=== PATIENT | female | born 1970 | race Caucasian/White ===

== ENCOUNTER → 2020-08-25 07:50 | Outpatient (CLI) | payer OTHER, SELFPAY ==
--- NOTE | ~2020-08-25 | MR_ITS ---
EXAMINATION: MR shoulder RT wo con DATE: 08/25/2020 08:35 INDICATION: Right shoulder pain. TECHNIQUE: Magnetic resonance imaging (MRI) of the right shoulder was performed without intravenous c ontrast. Sequences included axial PD-weighted FS FSE, coronal oblique PD-weighted FS FSE and T2-weigh carlitos FS FSE, and sagittal oblique T2-weighted FS FSE and T1-weighted FSE. COMPARISON: Right shoulder MRI 11/11/2016 FINDINGS: Coracoacromial arch: The acromion undersurface is curved in morphology (type II). There is moderate acromioclavicular join t osteoarthritis including inferiorly directed osteophytes. There is mild subacromial/subdeltoid burs itis. Rotator cuff: There is mild supraspinatus and infraspinatus tendinopathy. Teres minor tendon is normal. Subscapular is tendon is normal. There is no asymmetric fatty atrophy of the rotator cuff muscle bellies. Biceps tendon and glenoid labrum: Biceps tendon is in bicipital groove. Intra-articular biceps tendon is normal. There is a tear of the glenoid labrum from 11:00 to 12:00 (SLAP tear). Fluid: There is no glenohumeral joint effusion. Bones/cartilage: The glenoid cartilage is normal. Humeral head cartilage is normal. IMPRESSION: 1. Mild rotator cuff tendinopathy. No tear. 2. SLAP tear. 3. Moderate acromioclavicular joint osteoarthritis. 4. Mild subacromial/subdeltoid bursitis. Reviewed, dictated and finalized at location B.
== END ==
PROVIDERS: Visit Provider Orthopaedic Surgery
DX: M19.011 Primary osteoarthritis, right shoulder (principal); S43.431A Superior glenoid labrum lesion of right shoulder, initial encounter; M75.51 Bursitis of right shoulder
CPT/HCPCS: 73221

== ENCOUNTER → 2020-09-23 11:23 | Outpatient (CLI) | payer OTHER, SELFPAY ==
--- NOTE | ~2020-09-23 | MM_ITS ---
EXAMINATION: MM screening quita BI w carleen HISTORY: Screening mammogram TECHNIQUE: Craniocaudal and mediolateral oblique 3-D tomosynthesis images were obtained and synthetic 2-D images were generated. CAD analysis was submitted and interpreted. COMPARISON: 07/20/2012, 03/02/2011 bilateral digital screening mammogram BREAST PARENCHYMAL COMPOSITION: There are scattered areas of fibroglandular density. FINDINGS: Bilateral mammographic asymmetries. Bilateral diagnostic mammography is recommended, with u ltrasound if required. IMPRESSION: 1. Bilateral mammographic asymmetries 2. Bilateral diagnostic mammography is recommended, with ultrasound if required BI-RADS Category 0: Incomplete: Needs additional imaging evaluation. Reviewed, dictated and finalized at location A.
== END ==
PROVIDERS: Visit Provider Nurse Practitioner Obstetrics & Gynecology
DX: Z12.31 Encounter for screening mammogram for malignant neoplasm of breast (principal); R92.8 Other abnormal and inconclusive findings on diagnostic imaging of breast
CPT/HCPCS: 77063; 77067

== ENCOUNTER → 2020-10-02 07:56 | Outpatient (CLI) | payer OTHER, SELFPAY ==
--- NOTE | ~2020-10-02 | MMUS_ITS ---
EXAMINATION: MM diagnostic mammo BI, US breast BI complete HISTORY: Follow-up breast asymmetries TECHNIQUE: Additional 3-D tomosynthesis images of the breasts were performed and synthetic 2-D images were generated. CAD analysis was submitted and interpreted. High resolution complete bilateral breas t ultrasound was performed. COMPARISON: Comparison to multiple prior studies sequentially, with oldest reviewed study dated 02/03. BREAST PARENCHYMAL COMPOSITION: Breast composed of scattered areas of fibroglandular density. FINDINGS: MAMMOGRAPHIC FINDINGS: There are no suspicious masses, calcifications or architectural distortion in either breast to sugges t malignancy. ULTRASOUND: Bilateral complete breast ultrasound: In the right breast at 8:00, 5 cm from the nipple, there is a 5 mm cyst. Otherwise, no discrete masses are identified. No sonographic evidence for malignancy in eit her breast. IMPRESSION: 1. No evidence for malignancy in either breast. 2. Routine yearly screening mammogram and regular clinical breast examination are recommended. BI-RADS Category 2: Benign finding(s). Reviewed, dictated and finalized at location A. IMPRESSION: 1. No evidence for malignancy in either breast. 2. Routine yearly screening mammogram and regular clinical breast examination a re recommended. BI-RADS Category 2: Benign finding(s).
== END ==
PROVIDERS: Visit Provider Nurse Practitioner Obstetrics & Gynecology
DX: R92.8 Other abnormal and inconclusive findings on diagnostic imaging of breast (principal)
CPT/HCPCS: 76641; 77066

== ENCOUNTER → 2021-04-03 01:06 | Outpatient (CLI) | payer OTHER, SELFPAY ==
[2021-04-04 16:52] LABS: SARS-CoV-2 RNA PCR Negative
== END ==
PROVIDERS: PCP Family Medicine; Visit Provider Internal Medicine Gastroenterology
DX: Z01.812 Encounter for preprocedural laboratory examination (principal); Z20.822 Contact with and (suspected) exposure to COVID-19
CPT/HCPCS: C9803; U0003; U0005

== ENCOUNTER 2021-04-07 01:52 | Day surgery (SDC) | payer OTHER, SELFPAY ==
[2021-04-01 11:27] VITALS: BMI 26.2
[2021-04-07 07:43] VITALS: BP 146/93; PULSE 80; RESP 18; TEMP 36.8; O2SAT 98
[2021-04-07] MEDS: LACTATED RINGERS 1,000 ML 150 ML IV CONT (07:52)
--- NOTE | 2021-04-07 08:35 | P.PNAN_ITS ---
Anes - Initial Pre Proc Eval Procedure: Operation Date: 04/07/21 09:00 Proposed Procedures p Screening Colonoscopy - Kennedy Paul MD Date/Time: 04/07/21 08:35 Surgeon: Kennedy Paul MD Pre Op Diagnosis: neoplasm screening Patient Data Age: 50 Gender: F Height: 1.64 m Weight: 74.2 kg Last Vital Signs Temp 98.2 F 04/07/21 07:43 Pulse 80 04/07/21 07:43 Resp 18 04/07/21 07:43 BP 146/93 H 04/07/21 07:43 Pulse Ox 98 04/07/21 07:43 Allergies Allergy/AdvReac Type Severity Reaction Status Date / Time No Known Allergies Allergy Verified 04/07/21 07:42 Home Medications Medication Instructions Recorded Confirmed Type loratadine 10 mg tablet 10 mg PO DAILY 07/04/19 04/07/21 History fluticasone furoate 200 1 inh INHALATION DAILY #30 ea 01/07/21 04/07/21 Rx mcg/actuation blister powder for inhalation triamcinolone acetonide 55 mcg 2 spray INTRANASAL DAILY 01/07/21 04/07/21 History nasal spray aerosol ekzbjbr-qojd-ctmma-oreg-capryl 1 cap PO DAILY 04/01/21 04/07/21 History albuterol sulfate 90 mcg/actuation 2 inh INHALATION Q4H PRN #8.5 gm 04/06/21 04/07/21 Rx aerosol inhaler Patient hx anesthesia problems: none Family hx anesthesia problems: none Results Review: All pre-operative results and documents have been reviewed as part of the pre-operative evaluation. FORMERLY [facility], [facility] Past Medical History Medical History Asthma Environmental allergies Mononucleosis Vitamin D deficiency Surgical History Surgical History History of ankle surgery b/l reconstruction due to fall from accident 1996, 2001, 2009 Family History Family History Mother Family history of diabetes mellitus in first degree relative Grandparent Family history of malignant neoplasm of breast Family history of heart disease in male family member before age 55 Diabetes mellitus Social History Social History Smoking status: Never smoker Alcohol intake: never Substance use: never Substance use type: does not use Living arrangements: with family Spiritual care concerns: No Anes - Eval Final PreProcedure Day of Procedure 04/07/21 08:35 Patient weight: overweight Heart: regular rate and rhythm Lungs: clear to auscultation Airway: Mallampati scale class II Neurological: alert and oriented Last oral intake: >/= 8 hours ASA classification: II Emergent: no Anesthetic plan: proceed Anesthesia type and monitoring: general GIVS and standard monitoring Results Review: All pre-operative results and documents have been reviewed as part of the pre-operative evaluation. Informed Consent: The patient's anesthetic plan and its attendant risks and benefits were discussed with the patient/family/POA. Questions were solicited and answers provided to the satisfaction of the patient/family/POA.
--- NOTE | 2021-04-07 08:44 | PM.HPGS ---
History of Present Illness History of Present Illness Consent: Risks, benefits, and alternatives have been discussed and questions answered. Patient agrees to proceed with procedure. Chief complaint: neoplasm screening Narrative: Waleska Glover is a 50 year old female here for first screening colonoscopy Review of Systems Constitutional: Constitutional: Denies headache(s) and Denies weakness Eyes: Eyes: Denies blurry vision ENT: Reports Normal hearing present, Denies headache(s) and Denies neck pain Cardiovascular: Cardiovascular: Denies chest pain and Denies dyspnea Respiratory: Respiratory: Denies dyspnea Gastrointestinal: Gastrointestinal: Reports no additional gastrointestinal complaints Genitourinary: Genitourinary: Denies dysuria Musculoskeletal: Musculoskeletal: Denies neck pain Integumentary/Breasts: Skin/Breast: Denies dry skin Neurologic: Reports Normal hearing present, Denies headache(s) and Denies weakness Psychiatric: Psychiatric: Denies anxiety Endocrine: Endocrine: Denies change in body appearance Hematologic/Lymphatic: Hematologic/Lymphatic: Denies easy bleeding Allergic/Immunologic: Allergic/Immunologic: Denies urticaria PMFSH Past Medical History Medical History (Updated 04/07/21 @ 08:44 by Kennedy Paul MD) Asthma Colon cancer screening Environmental allergies Mononucleosis Vitamin D deficiency Surgical History Surgical History History of ankle surgery b/l reconstruction due to fall from accident 1996, 2001, 2009 Family History Family History Mother Family history of diabetes mellitus in first degree relative Grandparent Family history of malignant neoplasm of breast Family history of heart disease in male family member before age 55 Diabetes mellitus Social History Social History Smoking status: Never smoker Alcohol intake: never Substance use: never Substance use type: does not use Living arrangements: with family Spiritual care concerns: No Meds Home Medications and Allergies Home Medications Medication Instructions Recorded Confirmed Type loratadine 10 mg tablet 10 mg PO DAILY 07/04/19 04/07/21 History fluticasone furoate 200 1 inh INHALATION DAILY #30 ea 01/07/21 04/07/21 Rx mcg/actuation blister powder for inhalation triamcinolone acetonide 55 mcg 2 spray INTRANASAL DAILY 01/07/21 04/07/21 History nasal spray aerosol vqzpdah-kdzg-btkay-oreg-capryl 1 cap PO DAILY 04/01/21 04/07/21 History albuterol sulfate 90 mcg/actuation 2 inh INHALATION Q4H PRN #8.5 gm 04/06/21 04/07/21 Rx aerosol inhaler Allergies Allergy/AdvReac Type Severity Reaction Status Date / Time No Known Allergies Allergy Verified 04/07/21 07:42 Vital Signs Vital Signs - 24 hr 04/07/21 07:43 Temperature 98.2 F Pulse Rate 80 Respiratory Rate 18 Blood Pressure 146/93 H Pulse Oximetry 98 Exam Const: General: comfortable and no acute distress HENMT: General nose exam: Normal nares present Eyes: General: appearance normal, both eyes and all related structures Neck: Neck: no JVD Resp: Auscultation: clear to auscultation bilaterally Cardio: Rate: regular rate Rhythm: regular rhythm GI: Inspection: non-distended GI Palp: Yes Soft to palpation Skin: General skin exam: normal color Neuro: General: gait normal Speech: normal speech Extrem: General: normal to inspection Psych: Mental Status: mental status grossly normal Assessment and Plan Assessment and plan (1) Colon cancer screening: Code(s): Z12.11 - Encounter for screening for malignant neoplasm of colon Status: Acute Assessment and Plan: colonoscopy
[2021-04-07 09:10] VITALS: BP 100/62; PULSE 70; RESP 20; O2SAT 97
[2021-04-07 09:20] VITALS: BP 121/79; PULSE 60; RESP 18; O2SAT 100
[2021-04-07 09:30] VITALS: BP 126/78; PULSE 64; RESP 20; O2SAT 100
== END 2021-04-07 09:48 | disposition home or self-care (01) ==
PROVIDERS: PCP Family Medicine; Visit Provider Internal Medicine Gastroenterology
PROC: 0DJD8ZZ Inspection of Lower Intestinal Tract, Via Natural or Artificial Opening Endoscopic (ICD-10-PCS; CPT 45378; principal; 2021-04-07 09:00)
DX: Z12.11 Encounter for screening for malignant neoplasm of colon (principal); K57.30 Diverticulosis of large intestine without perforation or abscess without bleeding; K64.8 Other hemorrhoids; K63.5 Polyp of colon; D12.2 Benign neoplasm of ascending colon; J45.909 Unspecified asthma, uncomplicated; E55.9 Vitamin D deficiency, unspecified; Z79.51 Long term (current) use of inhaled steroids
CPT/HCPCS: 45380; 45385; 88305; C9803; J2704; J7120; U0003; U0005

== ENCOUNTER 2021-07-23 09:55 | Emergency (ER) | payer OTHER, SELFPAY ==
[2021-07-23] VITALS (10 sets, daily range): BP systolic 135–147; BP diastolic 86–90; PULSE 67–98; RESP 18–22; TEMP 36.6; O2SAT 98–99
--- NOTE | ~2021-07-23 | XR_ITS ---
EXAMINATION: XR chest 1V portable EXAM DATE: 07/23/2021 10:52 INDICATION: Asthma exacerbation TECHNIQUE: Portable AP frontal chest x-ray was obtained. There is no prior study for comparison. FINDINGS: Lungs mildly underpenetrated, difficult to exclude groundglass airspace disease. No conflue nt consolidation, pneumothorax or pleural effusion suspected. The cardiomediastinal silhouette is pro minent but magnified on this AP technique. There are no osseous abnormalities identified. IMPRESSION: No confluent consolidation but some limitations due to underpenetration. If there is coug h, would be difficult to exclude groundglass density airspace disease. Reviewed, dictated and finalized at location A. IMPRESSION: No confluent consolidation but some limitations due to underpenetra tion. If there is cough, would be difficult to exclude groundglass density airs pace disease.
--- NOTE | 2021-07-23 10:39 | ED.ASTHMA ---
HPI - Asthma General Chief Complaint: Asthma Stated Complaint: asthma attack Time Seen by Provider: 07/23/21 10:14 Source: patient Mode of arrival: ambulatory Limitations: no limitations History of Present Illness HPI Narrative: Patient is 50 years old white female presents with coughing, shortness of breath, wheezing start 2 to 3 days ago, was seen by her family physician and started on Medrol Dosepak. Currently patient on albuterol, Claritin and Nasacort. She denies any fever, chills, nausea, vomiting, chest pain. Related Data Home Medications Medication Instructions Recorded Confirmed loratadine 10 mg tablet 10 mg PO DAILY 07/04/19 05/20/21 triamcinolone acetonide 55 mcg 2 spray INTRANASAL DAILY 01/07/21 05/20/21 nasal spray aerosol okqhhvv-sszw-wkpys-oreg-capryl 1 cap PO DAILY 04/01/21 05/20/21 cholecalciferol (vitamin D3) 50 mcg PO DAILY 05/20/21 05/20/21 [Vitamin D3] zinc 50 mg PO DAILY 05/20/21 05/20/21 Allergies Allergy/AdvReac Type Severity Reaction Status Date / Time No Known Allergies Allergy Verified 04/07/21 07:42 Review of Systems Review of Systems: CONSTITUTIONAL: Denies fever, chills, or sweats. EYES: Denies visual changes, redness, or discharge. ENT: Denies rhinorrhea, congestion, sore throat, or otalgia. CARDIOVASCULAR: Denies chest pain, palpitations, or edema. RESPIRATORY: Coughing and wheezing GASTROINTESTINAL: Denies abdominal pain, nausea, vomiting, or diarrhea. GENITOURINARY: Denies dysuria or hematuria. SKIN: Denies rash or itching. MUSCULOSKELETAL: Denies back pain, joint pain, or myalgia. NEUROLOGIC: Denies headache, numbness, or weakness. PSYCHIATRIC: Denies anxiety or depression. [facility] Past Medical History Medical History Asthma Colon cancer screening Environmental allergies Mononucleosis Vitamin D deficiency Surgical History Surgical History History of ankle surgery b/l reconstruction due to fall from accident 1996, 2001, 2009 Family History Family History Mother Family history of diabetes mellitus in first degree relative Grandparent Family history of malignant neoplasm of breast Family history of heart disease in male family member before age 55 Diabetes mellitus Social History Social History Smoking status: Never smoker Alcohol intake: never Substance use: never Substance use type: does not use Spiritual care concerns: No Exam Narrative: General appearance: Well-developed, well-nourished Skin: Normal color Head: Normocephalic, nontraumatic Eyes: Clear conjunctiva ENT: Oropharynx normal, ears normal, nose normal Neck: Supple, nontender Chest and respiratory: Airway patent, no respiratory distress, no accessory muscle use Heart: Regular rate/rhythm Abdomen: Soft, nontender, no organomegaly, quiet bowel sounds Vascular: Normal peripheral pulses, normal capillary refill. Musculoskeletal: Normal range of motion, nontender back Neurologic: Alert and oriented ?3, SOFTWARE [employer] is normal as tested, no gross motor deficit Course Course Emergency Course: Chest x-ray showed possible pneumonia. Patient feeling much better after 3 nebulizer treatment. Asthma, bronchitis, pneumonia my concern. Vital Signs Vital signs: Vital Signs Pulse Rate 81 07/23/21 10:33 Temperature 36.6 C 07/23/21 10:34 Pulse Rate 67 07/23/21 11:56 Respiratory Rate 20 07/23/21 11:56 Blood Pressure 147/90 H 07/23/21 10:34 Pulse Oximetry 99 07/23/21 10:51 MDM - Asthma Diff
[2021-07-23] MEDS: predniSONE 20 MG TABLET 60 MG PO (10:48)
[2021-07-23] MEDS: ALBUTEROL SULFATE NEB 2.5 MG/0.5 ML INH 5 MG INHALATION ×3 (10:57→11:17)
[2021-07-23] MEDS: IPRATROPIUM BR 0.02% INH SOLN 0.5 MG/2.5 ML VIAL INHALATION (10:57)
--- NOTE | 2021-07-23 12:03 | PCRCNOTE ---
[facility] CAN DELIVER PT A HOME NEBULIZER KIT. FAXED PAPERWORK AND ORDER TO SHAN AT [facility]. PHONE # IS . DR WILL NEED TO ENTER A NOTE IN CHART IN REGARDS TO THE NEED FOR NEB. MEDICATION NEEDED FOR NEB WILL NEED TO BE ORDERED THROUGH PT PHARMACY. DR WILL NEED TO WRITE A SCRIPT FOR REQUESTED NEB MEDS/FREQUENCY.
== END 2021-07-23 12:47 | disposition home or self-care (01) ==
PROVIDERS: Emergency Provider Emergency Medicine; PCP Family Medicine
DX: J45.909 Unspecified asthma, uncomplicated (principal); E55.9 Vitamin D deficiency, unspecified
CPT/HCPCS: 71045; 94640; 99285; J7512

== ENCOUNTER 2022-01-20 01:20 | Day surgery (SDC) | payer OTHER, SELFPAY ==
[2022-01-15 10:26] VITALS: BMI 25.7
--- NOTE | 2022-01-15 10:30 | PC.NURSE ---
Report to the Outpatient Waiting Room, entrance under the green pavilion located off [facility], at time 0600 on date 01/20/22. OR Time: 0730. Time changes happen often and if your time is changed the preop area will call you the afternoon before. - You and your visitor will be asked to self-screen and do not enter if you have any COVID symptoms. - We encourage only one visitor and NO visitors under age 16 are allowed at this time. Your visitor will receive communication by the phone number that is given day of service. - The patient visitor is requested to social distance or may leave the building when not with patient due to restrictions. - A mask is required within the hospital. Patients may have clear liquids (water, carbonated beverages, clear teas, apple juice) until 3 hours prior to surgery with a maximum of 20 ounces. - No food from midnight until time of surgery Take the following medications with a SIP of water the morning of surgery: INHALERS Medications to discontinue per physician: VITAMINS/SUPPLEMENTS Date to take last dose: 01/16/22 Please no make-up, nail tajik, hairspray, perfume, deodorant, or body powder the day of surgery. No jewelry (including any body piercings) or valuables the day of surgery, leave them at home. Please take a shower or bath the night before, or the morning of, surgery with an antibacterial soap. Wear comfortable, loose fitting clothing. - Jewelry must be removed prior to entering the operating room. Rings and piercings that are not removed may be cut off. - The hospital will not accept responsibility for valuables. - Please leave all valuables, including medications, at home the day of surgery. If you are going home after surgery, a licensed flatbed driver must drive you home. - NO public transportation without another adult. - We recommend that an adult stay with you for 24 hours following discharge. - We also recommend that you do not drive, make important decision, drink alcoholic beverages, or take any drugs that were not prescribed by your health care provider for at least 24 hours after your discharge time. Follow any additional instructions given to you from your surgeon. If you or anyone in your household have experienced Covid symptoms in the past week, please notify your surgeon or the nurse liaison at the phone number below for possible testing. Telephone instructions given to PTShawn FUNESALICE MCSPARIN and asked if any additional questions and then verbalized understanding. Patient advised to call surgeon office or pre surgery nurse liaison [phone] if any additional questions.
--- NOTE | 2022-01-15 12:43 | PM.IMHP ---
H&P: HPI History of Present Illness Date/Time: 01/15/22 12:43 Chief Complaint: The patient is a 51-year-old female who presents with right shoulder pain. This is chronic and ongoing in nature. The patient's shoulder bothers her quite a bit she has pain with overhead type motion trying to reach behind her back can not do anything heavy repetitive. She has had aching pain that radiates in the upper arm chronically worse with activity somewhat relieved by rest however she has trouble sleeping at night when going about her daily activities. Pain is moderately severe has failed conservative measures including cortisone therapy and anti-inflammatories. Patient does have some issues with her neck as well but does not appear she has any radicular pain to the shoulder this is mostly into the shoulder blade musculature. An MRI scan was done that shows type 2 acromion with moderate AC joint arthrosis and impingement with rotator cuff tendinitis within the supraspinatus and infraspinatus tendons. Subscapularis tendon is normal biceps appears to be normal except there is a tear of the glenoid labrum from about 11-12 o'clock with a SLAP tear. Glenohumeral joint appears to be otherwise normal at this point the patient is where the above findings she has discussed further treatment options in detail Dr. Lao would like to proceed with surgical intervention. Review of Systems Review of Systems: Ten point review of systems otherwise negative [facility] Past Medical History Medical History Asthma Colon cancer screening Environmental allergies Mononucleosis Urticaria, cholinergic Vitamin D deficiency Surgical History Surgical History History of ankle surgery b/l reconstruction due to fall from accident 1996, 2001, 2009 Family History Family History Mother Family history of diabetes mellitus in first degree relative Grandparent Family history of malignant neoplasm of breast Family history of heart disease in male family member before age 55 Diabetes mellitus Social History Social History Smoking status: Never smoker Alcohol intake: current Alcohol use details: 1/MONTH Substance use: never Substance use type: does not use Living arrangements: with family Spiritual care concerns: No Meds Home Medications and Allergies Home Medications Medication Instructions Recorded Confirmed Type loratadine 10 mg tablet (Claritin) 10 mg PO DAILY 07/04/19 01/15/22 History triamcinolone acetonide 55 mcg 2 spray intranasal DAILY 01/07/21 01/15/22 History nasal spray aerosol (Nasacort) tumeric 100 mg-ro 150 mg-olive 1 cap PO DAILY 04/01/21 01/15/22 History 50 mg-oreg 150 mg-caprylate capsule albuterol sulfate 90 mcg/actuation 2 inh inhalation Q4H PRN shortness 04/06/21 01/15/22 Rx aerosol inhaler of breath or wheezing #8.5 grams cholecalciferol (vitamin D3) 50 50 mcg PO DAILY 05/20/21 01/15/22 History mcg (2,000 unit) tablet (Vitamin D3) zinc 50 mg tablet 50 mg PO DAILY 05/20/21 01/15/22 History albuterol sulfate 2.5 mg/3 mL 2.5 mg (3 mL) inhalation Q6H #180 07/28/21 01/15/22 Rx (0.083 %) solution for nebulization mL fluticasone 250 mcg-salmeterol 50 1 inh inhalation Q12H Asthma #180 07/28/21 01/15/22 Rx mcg/dose blistr powdr for ea inhalation (Advair Diskus) montelukast 10 mg tablet 10 mg PO DAILY #90 tabs 07/28/21 01/15/22 Rx (Singulair) hyalur ac-chond sul-colg II-AA 40 1 cap PO DAILY 01/15/22 01/15/22 History mg-80 mg-400 mg capsule (Hyaluronic Acid(with chondroitin-collagenII)) Allergies Allergy/AdvReac Type Severity Reaction Status Date / Time No Known Allergies Allergy Verified 01/15/22 10:24 Exam Narrative: on exam the patient is noted be a well-developed w
--- NOTE | 2022-01-19 16:28 | WPDANESEPPF ---
Anes - Initial Pre Proc Eval Procedure: Operation Date: 01/20/22 07:30 Proposed Procedures p Right Shoulder Arthroscopy, Acromioplasty, Open Distal Clavicle Excision, Rotator Cuff Repair, Proceed As Indicated - Reuben Lao MD Date/Time: 01/19/22 16:28 Surgeon: Reuben Lao MD Pre Op Diagnosis: rotator cuff tear right shoulder Patient Data Age: 51 Gender: F Height: 1.65 m Weight: 70.31 kg Allergies Allergy/AdvReac Type Severity Reaction Status Date / Time No Known Allergies Allergy Verified 01/15/22 10:24 Home Medications Medication Instructions Recorded Confirmed Type loratadine 10 mg tablet (Claritin) 10 mg PO DAILY 07/04/19 01/15/22 History triamcinolone acetonide 55 mcg 2 spray intranasal DAILY 01/07/21 01/15/22 History nasal spray aerosol (Nasacort) tumeric 100 mg-ro 150 mg-olive 1 cap PO DAILY 04/01/21 01/20/22 History 50 mg-oreg 150 mg-caprylate capsule albuterol sulfate 90 mcg/actuation 2 inh inhalation Q4H PRN shortness 04/06/21 01/15/22 Rx aerosol inhaler of breath or wheezing #8.5 grams cholecalciferol (vitamin D3) 50 50 mcg PO DAILY 05/20/21 01/20/22 History mcg (2,000 unit) tablet (Vitamin D3) zinc 50 mg tablet 50 mg PO DAILY 05/20/21 01/20/22 History albuterol sulfate 2.5 mg/3 mL 2.5 mg (3 mL) inhalation Q6H #180 07/28/21 01/15/22 Rx (0.083 %) solution for nebulization mL fluticasone 250 mcg-salmeterol 50 1 inh inhalation Q12H Asthma #180 07/28/21 01/20/22 Rx mcg/dose blistr powdr for ea inhalation (Advair Diskus) montelukast 10 mg tablet 10 mg PO DAILY #90 tabs 07/28/21 01/15/22 Rx (Singulair) hyalur ac-chond sul-colg II-AA 40 1 cap PO DAILY 01/15/22 01/15/22 History mg-80 mg-400 mg capsule (Hyaluronic Acid(with chondroitin-collagenII)) Patient hx anesthesia problems: none Family hx anesthesia problems: none Results Review: All pre-operative results and documents have been reviewed as part of the pre-operative evaluation. [facility] Past Medical History Medical History Asthma Colon cancer screening Environmental allergies Mononucleosis Urticaria, cholinergic Vitamin D deficiency Surgical History Surgical History History of ankle surgery b/l reconstruction due to fall from accident 1996, 2001, 2009 Family History Family History Mother Family history of diabetes mellitus in first degree relative Grandparent Family history of malignant neoplasm of breast Family history of heart disease in male family member before age 55 Diabetes mellitus Social History Social History Smoking status: Never smoker Alcohol intake: current Alcohol use details: 1/MONTH Substance use: never Substance use type: does not use Living arrangements: with family Spiritual care concerns: No Anes - Eval Final PreProcedure Day of Procedure 01/19/22 16:28 Patient weight: overweight Heart: regular rate and rhythm Lungs: clear to auscultation Airway: Mallampati scale class II Neurological: alert and oriented Last oral intake: >/= 8 hours ASA classification: II Emergent: no Anesthetic plan: proceed Anesthesia type and monitoring: general ETT and standard monitoring Results Review: All pre-operative results and documents have been reviewed as part of the pre-operative evaluation. Informed Consent: The patient's anesthetic plan and its attendant risks and benefits were discussed with the patient/family/POA. Questions were solicited and answers provided to the satisfaction of the patient/family/POA.
[2022-01-20] VITALS (11 sets, daily range): BP systolic 113–171; BP diastolic 52–88; PULSE 60–81; RESP 12–20; TEMP 36.1–37; O2SAT 97–100; BMI 27.7
[2022-01-20] MEDS: LACTATED RINGERS 1,000 ML 30 ML IV CONT ×2 (06:45→10:19)
[2022-01-20] MEDS: ACETAMINOPHEN 500 MG TABLET 1000 MG PO (06:50)
[2022-01-20] MEDS: KETOROLAC 15 MG/ML VIAL (*BKC) IV PUSH (06:51)
--- NOTE | 2022-01-20 07:05 | WPDHPUPDATE1 ---
History and Physical Update Update Date/Time: 01/20/22 07:05 History and Physical has been reviewed, including an updated exam of the patient. There are NO changes in the patient's condition. Risks, benefits, and alternatives have been discussed and questions answered. Patient agrees to proceed with procedure.
--- NOTE | 2022-01-20 07:23 | WPDANESPNB ---
Anes - Peripheral Nerve Block Date/Time: 01/20/22 07:23 I have discussed with the patient/family/POA the placement of a peripheral nerve block for post-operative pain management, including associated risks, benefits, complications, and side effects. Alternative methods of post-operative analgesia were detailed. Questions were solicited and answers provided to the satisfaction of the patient/family/POA. Time-Out: A pre-procedural Time-Out was completed immediately before starting the procedure and confirmed: Patient Identification, Site, Procedure, Patient Position and the Availability of Requisite Equipment. Clinical Indications: Acute post-operative pain management requested by the operative surgeon. Nerve Block Insertion Note Anes-nerve block: interscalene right Patient position: supine Skin prep: chlorhexidine Needle: 22 gauge, stimulating, insulated echogenic needle. Needle length: 50 mm Technique: ultrasound Injectate: bupivacaine 0.5% with epi 5 mcg/ml (30cc- no epi) Observations: tolerated well Complications: none Procedure start time:: 714 Procedure end time:: 717
[2022-01-20] MEDS: ceFAZolin 2 GM/D5W 50 ML 2 GM/50 ML BAG IVPB (07:31)
--- NOTE | 2022-01-20 08:50 | P.OP_ITS ---
Procedure Note - Detailed Date of Procedure 01/20/22 Pre-op Diagnosis Acromioclavicular arthritis. Rotator Cuff tendonitis Right Shoulder Post-op Diagnosis Same Procedure Performed Distal clavicle excision Arthroscopic acromioplasty Right Shoulder Surgeon Reuben Lao MD [employer] Milton Berumen Anesthesia General Indications Chronic Pain unresponsive to conservative treatment Description of Procedure Arthroscopy shoulder with acromioplasty open distal clavicle excision. Rotator cuff debridement. Estimated Blood Loss 50 Drains No Packing No Pathology None sent Complications No immediate complications Condition Stable Disposition PACU
[2022-01-20] MEDS: LIDO 2%/EPINEPHRINE 1:100,000 20 ML VIAL INFILTRATE (08:59)
--- NOTE | 2022-01-20 09:11 | P.OPB_ITS ---
Procedure Note - Brief Procedure Note - Brief Date of procedure: 01/20/22 Pre-op diagnosis: rotator cuff tear right shoulder Preop diagnosis impingement AC joint arthrosis with subacromial spurring bursitis and rotator cuff tendinitis right shoulder, possible partial-thickness rotator cuff tear Postop diagnosis impingement AC joint arthrosis with subacromial spurring bursitis and rotator cuff tendinitis right shoulder Procedure performed: Right shoulder arthroscopy acromioplasty debridement subacromial space with open distal clavicle excision, bursectomy Description of procedure: Patient was taken to the operating room placed under anesthesia I entered the operating room at 7:45 a.m., once the patient was under anesthesia I then proceeded to position the patient on the beach chair in preparation for the [facility] surgery. Once this was done patient was prepped I then draped the patient in a sterile fashion. Once the surgical procedure began I assisted Dr. Lao with retraction and hemostasis using dissection and cautery. Once the procedure was complete and then proceeded to close the deep fascia and superficial skin layers with 2-0 Vicryl and emperatriz. Sterile dressing was placed the patient was placed back in a supine position on the operating table. After patient was awake I assisted with transfer from the operating table to the stretcher for transport to the recovery room. The patient tolerated procedure well. Was discharged to recovery room in good condition to be discharged home later today. I exited the operating room in approximately 9:05 a.m.. Surgeon: Reuben Lao MD 1st early childhood assistant- Milton Berumen PA-C Estimated blood loss (mL): 25
[2022-01-20] MEDS: fentaNYL CITRATE INJ (*CRX) 100 MCG/2 ML VIAL 25 MCG IV PUSH (10:19)
[2022-01-20] MEDS: ONDANSETRON INJ 4 MG/2 ML VIAL IV PUSH (10:45)
[2022-01-20] MEDS: SCOPOLAMINE 1.5 MG PATCH TRANSDERM (11:13)
[2022-01-20] MEDS: diphenhydrAMINE HCl INJ 50 MG/ML VIAL 25 MG IV PUSH (11:13)
--- NOTE | 2022-01-27 07:33 | P.OP_ITS ---
Procedure Note - Detailed Date of Procedure 01/27/22 Pre-op Diagnosis rotator cuff tearing right shoulder Post-op Diagnosis Same Procedure Performed Rotator cuff repair, distal clavicle excision Surgeon Reuben Lao MD [employer] Milton Berumen Anesthesia General Description of Procedure Arthroscopy shoulder with acromioplasty open distal clavicle exicision. Rotator cuff debridement and repair. Right shoulder Patient brought to the operative room 7. A general anesthetic was administered placed on the table sterilely prepped and draped in usual manner. I began by scoping the shoulder standard posterior and lateral portals made. The biceps tendon was intact she had thinning of the rotator cuff into subacromial space and acromioplasty performed and the debrided the bursal tissue. This final longitudinal incision made over the shoulder dissection carried down to the fascia of the AC joint identified in 3 to 4 millimeters of distal clavicle excised as smoothing the edges. I split the deltoid then and gently debrided the rotator cuff from the bursal side. The remainder was intact. At this point the wound was the wound was then closed with a 2. Ethibond and 0 Vicryl and the emperatriz sterile dressing applied patient tolerated procedure well left the operating room satisfactory condition. Estimated Blood Loss 50 Drains No Packing No Pathology None sent Complications No immediate complications Condition Stable Disposition PACU
== END 2022-01-20 12:05 | disposition home or self-care (01) ==
PROVIDERS: PCP Family Medicine; Visit Provider Orthopaedic Surgery
PROC: (CPT 29805; principal; 2022-01-20 07:30)
DX: M75.41 Impingement syndrome of right shoulder (principal); M19.011 Primary osteoarthritis, right shoulder; M75.51 Bursitis of right shoulder; M77.8 Other enthesopathies, not elsewhere classified; G89.18 Other acute postprocedural pain; J45.909 Unspecified asthma, uncomplicated; E55.9 Vitamin D deficiency, unspecified; Z79.51 Long term (current) use of inhaled steroids
CPT/HCPCS: 29822; 23120; 64415; A9270; J0690; J1100; J1165; J1170; J1200; J1885; J2250; J2370; J2405; J2704; J2710; J3010; J7120

== ENCOUNTER → 2023-04-29 14:56 | Outpatient (CLI) | payer OTHER, SELFPAY ==
--- NOTE | ~2023-04-29 | MM_ITS ---
EXAMINATION: MM screening [facility] BI w carleen HISTORY: Screening mammogram TECHNIQUE: Craniocaudal and mediolateral oblique 3-D tomosynthesis images were obtained and synthetic 2-D images were generated. CAD analysis was submitted and interpreted. COMPARISON: 10/02/2020, 09/23/2020, 07/20/2012 BREAST PARENCHYMAL COMPOSITION: There are scattered areas of fibroglandular density. FINDINGS: No suspicious mass, calcification, or architectural distortion are identified in either daysi ast to suggest malignancy. There has been no suspicious interval change. IMPRESSION: 1. No mammographic evidence of malignancy. 2. Recommend routine screening mammography in one year. BI-RADS Category 1: Negative Reviewed, dictated and finalized at location [facility]. [facility]
== END ==
PROVIDERS: PCP Nurse Practitioner Obstetrics & Gynecology; Visit Provider Nurse Practitioner Obstetrics & Gynecology
DX: Z12.31 Encounter for screening mammogram for malignant neoplasm of breast (principal)
CPT/HCPCS: 77063; 77067

== ENCOUNTER 2024-05-01 08:19 | Outpatient (CLI) | payer OTHER, SELFPAY ==
--- NOTE | ~2024-05-01 | MM_ITS ---
EXAMINATION: MM screening quita BI w carleen HISTORY: Screening TECHNIQUE: Craniocaudal and mediolateral oblique 3-D tomosynthesis images were obtained and synthetic 2-D images were generated. CAD analysis was submitted and interpreted. COMPARISON: Comparison to multiple prior studies sequentially, with oldest reviewed study dated 07/20. BREAST PARENCHYMAL COMPOSITION: Not dense: There are scattered areas of fibroglandular density. FINDINGS: Not dense: There are scattered areas of fibroglandular density. There is no evidence of sohail picious mass, calcification, or architectural distortion to suggest malignancy in either breast. Ther e has been no suspicious interval change. IMPRESSION: 1. No mammographic evidence of malignancy. 2. Recommend routine screening mammography in one year. BI-RADS Category 1: Negative Reviewed, dictated and finalized at location A. [employer]
--- OUTSIDE RECORDS SUMMARY | 2024-05-01 08:36 | XMS_ITS | Data Portability ---
Author Organization [facility] Address [address] [place] [address] [address] Care Team Providers Care Marketing Automation Manager Name Role Phone EYALGARRISONJAMARCUSSUNDAR Primary Care Provider [phone] Assessment Encounter Date Assessment Date Assessment LastModified by Organization Details LastModified Time 08/20/2020 08/20/2020 Annual gynecological exam performed. Patient will come back in a year unless there are new symptoms. Not available 08/20/2020 12:57:38 12/30/2022 12/30/2022 Annual gynecological exam performed. Patient will come back in a year unless there are new symptoms. [email or web address] Not available 12/30/2022 11:25:42 03/29/2024 03/29/2024 Annual gynecological exam performed. Patient will come back in a year unless there are new symptoms. [email or web address] Not available 03/29/2024 15:02:23 Plan of Treatment Reminders Order Date Submit Date Provider Last Modified By Organization Details Last Modified Time Details Appointments None recorded. Lab None recorded. Referral gastroenter ologist referral 2020 021 [facility], [address], [address], [place], [address], 2 05:01:09 Procedures None recorded. Surgeries None recorded. Imaging MAMMO, screening, digital, bilateral 2020 021 [facility], [address], [place], [address], 1 16:55:06 MAMMO, screening, bilateral 2022 023 [email or web address] [facility], [address], [place], [address], 3 10:31:01 US, breast, bilateral, w/ axilla 2022 [facility]23 [email or web address], [address], [place], [address], 3 10:31:01 MAMMO, screening, digital, bilateral 2023 024 [email or web address] [facility], [address], [place], [address], 4 15:56:21 Medication Orders Arnuity Ellipta 200 mcg/actuati on powder for inhalation [email or web address], [address], [place], [place], [id number], 3 11:26:05 estradiol 0.01% (0.1 mg/gram) vaginal cream 2023 024 [facility], [address], [place], [place], [id number], 4 15:37:03 Patient TargetsNo targets recorded. Patient InstructionsNo instructions recorded. 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 Screening for malignant neoplasm of colon Needs screening colonoscopy scheduled Referring Physician: Radha Yarbrough, SODA JERKER, Encounter Date: 08/20/2020 Results Created Date Observation Date Name Description Value Unit Range Abnormal Flag Note LastModifiedBy Organization Detail LastModifiedTime 08/21/19 21 08/20/2020 pap, IG + HR HPV image guided Pap, HPV regardless of Pap result SEE RESULT S BELOW CASE REPOR T: Cytol ogy Gynec ologi aneudy Repor t Case: [id number] Autho dimasteena kay Provi smiley: Jacky colon Stefano Colle cted: 08/20 1541 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 Locat ion: [place] [facility] Recei raulito: 08/21 0246 First Scree n: Kay Ariza, CT Speci men: Scree moe Pap - Image d, Cervi x STATE MENT OF ADEQU ACY: Satis facto ry for evalu ation Trans forma tion zone compo nent prese nt Parti ally obscu ring infla mmati on prese nt FINAL DIAGN OSIS: Negat lucien for Intra epith elial Lesio n or Rut jaimes Elect cassandra peng benny d by Kay Ariza, CT on 2020 at 3:28 PM ----- ----- ----- ----- ----- ----- ----- ----- ----- ----- ----- ----- ----- ----- ----- ----- ----- ---- HPV RESUL TS: HPV mRNA E6/E7 : No HPV mRNA Detec carlitos NOTE: This high risk HPV mRNA assay detec ts fourt een high- risk HPV types (16, 18, 31, 33, 35, 39, 45, 51, 52, 56, 58, 59, 66, 68) witho ut diffe renti ation . CHART ABLE COMME NT: Note: This speci men was revie wed by a Cytot echno logis t and/o r Patho logis t (as indic ated in this repor t) after evalu ation using the Thinp rep Imagi ng Syste m. CLINI ANEUDY INFOR MATIO N: Menst rual Statu s: LMP (if appli cable ): 020 Clini aneudy Histo ry/Pr eviou s Pap: Type of Neopl tita (if appli cable ): Other Histo ry: Hormo connie (if appli cable ): PAP EDUCA CAROLINE L NOTE: The Pap Test is a scree moe test with an inher ent false negat lucien rate. Liqui d-bas e sampl ing may decre ase, but will not elimi ingrid, false negat lucien resul ts. A negat lucien resul t does not precl ude the prese nce and/o r devel opmen t of disea se, since the prese nce of abnor mal cells in the sampl e depen ds on the locat ion of the lesio n and sampl ing techn ique. Sugar nued regul ar scree moe is the best metho d of cance r preve ntion . If repor carlitos cytol ogic findi ng do not corre late with physi aneudy and/o r histo rical findi ngs, furth er inves tigat ion is recom johnny d, as clini shahida aragon nted. Not Available [facility] (Lab) [address], [place], [address], 08/21/2020 16:31:47 09/24/19 21 09/23/2020 MAMMO , scree moe, digit al, bilat eral No observ ation record ed. alex [facility] [address], [place], [address], 09/26/2020 15:17:58 09/24/19 21 09/23/2020 MAMMO , scree moe, digit al, bilat eral No observ ation record ed. alex [facility] [address], [place], [address], 09/25/2020 15:56:43 10/03/19 21 10/02/2020 MAMMO , diagn ostic , bilat eral No observ ation record ed. alex [facility] [address], [place], [address], 10/28/2020 10:10:25 04/30/19 24 04/29/2023 MAMMO , scree moe, bilat eral No observ ation record ed. [email or web address] [facility] [address], [place], [address], 06/02/2023 15:43:10 Result Notes None recorded. Problems Name Problem SNOMED Code Status Onset Date Resolution Date Notes Provider Name and Address Organization Details Recorded Time Screening for malignant neoplasm of rectum Completed 201208/20/2020 Screening for malignant neoplasms of the rectum;Rec orded Elsewhere: No Locatio n: [facility] rce: EHR Chroni c: N Practice ID: 0001 Billa ble Time: 09:30:00 AM Nika [facility] 13:04:[address] Concept Completed 201808/20/2020 Encntr for general adult medical exam w/o abnormal findings;R ecorded Elsewhere: No Locatio n: [facility] rce: EHR Chroni c: N Practice ID: 0001 Billa ble Time: 01:00:00 PM Nika [facility] 13:04:49 Screening for malignant neoplasm of cervix Completed 201208/20/2020 Screening for malignant neoplasms of the cervix;Rec orded Elsewhere: No Locatio n: [facility] rce: EHR Chroni c: N Practice ID: 0001 Billa ble Time: 09:30:00 AM Nika [facility] 13:04:45 Specializ ed medical examinati on Completed 201208/20/2020 Gynecologi aneudy Examinatio n;Recorded Elsewhere: No Locatio n: [facility] rce: EHR Chroni c: N Practice ID: 0001 Billa ble Time: 09:30:00 AM Nika [facility] 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 13:04:51 Problem Notes None recorded. Procedures Surgical History Date Name Laterality Status Provider Name and Address Organization Details Recorded Time 04/29/19 24 Date of Last Mammogram completed [facility] 03/29/2024 15:07:02 12/31/19 23 Date of Last Pap Smear completed [facility] 03/29/2024 15:05:30 04/04/19 22 Date of Last Colonoscopy completed Aurora Da Silva [facility] 12/30/2022 11:27:03 04/04/18 97 procedure on ankle completed [facility] 08/20/2020 13:08:28 04/04/18 90 Laparoscopy completed [facility] 08/20/2020 13:08:52 partial repair of rotator cuff completed Radha Yarbrough, [facility]- [address], [place], [address], [facility] 12/30/2022 11:48:02 Imaging Results Imaging Date Name Status LastModified by Organiz ation Details LastModified Time 09/23/2020 MAMMO, screening, digital, bilateral completed [facility] [address], [place], [address], 09/26/2020 15:17:58 09/23/2020 MAMMO, screening, digital, bilateral completed [facility] [address], [place], [address], 09/25/2020 15:56:43 10/02/2020 MAMMO, diagnostic, bilateral completed [facility] [address], [place], [address], 10/28/2020 10:10:25 04/29/2023 MAMMO, screening, bilateral completed [facility] [address], [place], [address], 06/02/2023 15:43:10 Procedure Notes None recorded. Medical Equipment None Reported. Allergies No known drug allergies Medications Name Sig Start Date Stop Date Status Note LastModified by Organization Details LastModified Time prednison e 10 mg tablet 12/30 completed Not Available Not Available Not Available Claritin 10 mg tablet Take 1 tablet every day by oral route. active Not Available Not Available No t Available hydrocodo ne 7.5 mg-acetam inophen 325 mg tablet 12/30 completed Not Available Not Available Not Available erythromy domonique 5 mg/gram (0.5 %) eye ointment 03/29 completed Not Available Not Available Not Available Claritin 5 mg/5 mL oral solution 08/20 completed Not Available Not Available Not Available Advair Diskus 250 mcg-50 mcg/dose powder for inhalatio n active Not Available Not Available Not Available diclofena c sodium 75 mg tablet,de layed release 12/30 completed Not Available Not Available Not Available monteluka st 10 mg tablet 12/30 completed Not Available Not Available Not Available estradiol 0.01% (0.1 mg/gram) vaginal cream Insert 1g vaginall y at bedtime 2-3 times per week active Not Available Not Available No t Available albuterol sulfate HFA 90 mcg/actua tion aerosol inhaler active Not Available Not Available Not Available Vitamin D2 1,250 mcg (50,000 unit) capsule 08/20 completed Not Available Not Available Not Available naproxen 500 mg tablet 12/30 completed Not Available Not Available Not Available Singulair 4 mg oral granules in packet 06/29 completed Prescrib annetta Morocho e: Yes Loca tion: Daljit mathew [facility] Laura odify By: flora Mathew [email or web address] DateTime : 05/19/19 13 09:51:47 AM Not Available Not Available Not Available Lutera (28) 0.1 mg-20 mcg tablet take 1 tablet by oral route every day 06/29 completed Prescrib ed Elsewher e: Yes Loca tion: [facility] M odify By: flora valenzuelaunter DateTime : 05/19/19 13 09:51:47 AM Not Available Not Available Not Available garlic active Not Available Not Availa ble Not Available Vitamin D3 10 mcg (400 unit) capsule Take by oral route. 12/30 completed Not Available Not Available Not Available Advair HFA 115 mcg-21 mcg/actua tion aerosol inhaler inhale 2 puff by inhalati on route 2 times every day in the morning and evening 06/29 completed Prescrib ed Elsewher e: Yes Loca tion: [facility] M odify By: flora valenzuelaunter DateTime : 05/19/19 13 09:51:47 AM Not Available Not Available Not Available Vitamin D2 active Not Available Not Available Not Available Arnuity Ellipta 200 mcg/actua tion powder for inhalatio n Inhale 1 puff every day by inhalati on route for 30 days. 12/30 completed Not Available Not Available Not Available turmeric active Not Available Not Avai lable Not Available Vitals Date Recorded Body height Body mass index (BMI) Body weight Systolic blood pressure Diastolic blood pressure Provider Name and Address Organization Details Last Updated DateTime 08/20/2020 162.56 cm 28.2 kg/m2 86535.15 g 126 mm[Hg] 74 mm[Hg] Nika Moore [facility] 1 14:19:32 Date Recorded Body height Body mass index (BMI) Body weight Systolic blood pressure Diastolic blood pressure Provider Name and Address Organization Details Last Updated DateTime 12/30/2022 162.56 cm 28.7 kg/m2 19745.93 g 179 mm[Hg] 107 mm[Hg] Aurora Da Silva [facility] 3 11:26:00 Date Recorded Systolic blood pressure Diastolic blood pressure Provider Name and Address Organization Details Last Updated DateTime 12/30/2022 132 mm[Hg] 84 mm[Hg] Radha Yarbrough, MARCELLA- [address], [place], [address], [facility] 12/30/2022 12:30:03 Date Recorded Body height Body mass index (BMI) Body weight Systolic blood pressure Diastolic blood pressure Provider Name and Address Organization Details Last Updated DateTime 03/29/2024 162.56 cm 27.9 kg/m2 56636.12 g 163 mm[Hg] 94 mm[Hg] Sandra Carroll [facility] 15:03:30 Social History Question Answer Notes LastModified by Organizat ion Details LastModified Time Tobacco Smoking Status Never Smoker Nika Moore [facility], [facility] 08/20/2020 14:19:40 Do You Have An Advance Directive? No Information n ot available 08/20/2020 What Is Your Level Of Alcohol Consumption? Occasional Information not available 08/20/2020 How Many Years Have You Consumed Alcohol? 15 Information not available 08/20/2020 Are You Blind Or Do You Have Difficulty Seeing? No Information n ot available 08/20/2020 What Is Your Level Of Caffeine Consumption? Moderate Information not available 08/20/2020 In The 14 Days Before Symptom Onset, Have You Had Close Contact With A Laboratory-confirm ed COVID-19 While That Case Was Ill? No Information n ot available 08/20/2020 In The 14 Days Before Symptom Onset, Have You Had Close Contact With A Person Who Is Under Investigation For COVID-19 While That Person Was Ill? No Information not available 08/20/2020 Have You Been To An Area Known To Be High Risk For COVID-19? No Information not available 08/20/2020 Are You Deaf Or Do You Have Serious Difficulty Hearing? No Information not available 08/20/2020 What Type Of Diet Are You Following? REGULAR Information n ot available 08/20/2020 What Is The Highest Grade Or Level Of School You Have Completed Or The Highest Degree You Have Received? 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 Yes Information not available 08/20/2020 Do You Use Protection During Sex? No Information not available 08/20/2020 Do You Use Your Seat Belt Or Car Seat Routinely? Yes Information not available 08/20/2020 Do You Have Smoke And Carbon Monoxide Detectors In Your Home? Yes Information not available 08/20/2020 How Much Tobacco Do You Smoke? No Information not available 08/20/2020 Do You Feel Stressed (tense, Restless, Nervous, Or Anxious, Or Unable To Sleep At Night)? [id number] Information not available 08/20/2020 Do You Use Any Illicit Or Recreational Drugs? No Information not available 08/20/2020 Do You Use Sunscreen Routinely? Yes Information not available 08/20/2020 Have You Used IV Drugs? No Information not available 08/20/2020 Sex: Unknown Functional Status Question Answer Note LastModified by Organization D etails LastModified Time Are you able to walk? YESWOREST Information not available 08/20/2020 What is your exercise level? Moderate Information not available 08/20/2020 Mental Status None recorded. Family History Relationship Description Onset Age of this Age Resolved Age Notes LastModified by Organization Details LastModified Time Mother Diabetes mellitus Not available 2020 13:07:14 Maternal Grandmother Malignant tumor of breast 84 [email or web address] Not available 08/20 19:31:33 Maternal Grandmother Diabetes mellitus Not available 2020 13:07:28 Maternal Grandmother Heart disease Not available 2020 13:07:42 Maternal Grandfather Diabetes mellitus Not available 2020 13:07:33 Medical History Condition Response Other Y Asthma Y Gynecological History Statement/Question Response Abnormal Pap N Date of Last Mammogram 04/29/2023 STIs/STDs N HPV Vaccine N 12 Current Control Method Menopause Age at First Child 25 Date of Last Colonoscopy 04/04/2021 Sexually Active? Y Menses Monthly N Age of first menstrual cycle 10 Date of Last Pap Smear 12/30/2022 Sexual Problems? N Desired Control Method None LMP Unknown Obstetrics History GPAL:G 3 P 0 3 0 3 Type Value Premature 3 Living 3 Total 3 Past Encounters Encounter ID Performer Location Encounter Start Date Encounter Closed Date Diagnosis/Indication Diagnosis SNOMED-CT Code Diagnosis ICD10 Code Diagnosis Note [id number] Radha Yarbrough [facility] [address] [address] 08/20/2020 14:00:34 08/20/2020 15:33:25 Gynecologic examination 34463456 Z01.419 Take Calcium with Vitamin D 12-1500mg daily. Do monthly self breast exams. It is advised to get annual flu shot in the fall and she could obtain at [facility] or [facility]. If you haven't received the Tdap vaccine in the last 10 years you should obtain one as well. Have mammogram yearly, bone density every 2-3 years and colonoscop y every 5-10 years depending on findings and history. Engage in daily exercise of low impact aerobic exercise 45-60 minutes 4-5 times weekly. Avoid tobacco and illicit drugs as well as using moderation with alcohol intake less than 1-2 8 oz beverages daily. This lifestyle behavior pattern will lead to less health conditions and longer life span. If BMI greater than 25 weight watchers or dietary consult advised. Questions have been answered. Patient appears to understand instructio ns, but if you have any further questions call or respond to this email No menses since 12/2019. She is keeping menstrual diary. She agreed to contact office if has a menses prior to 12mos or if they start up and are irregular. We will do labs/TUVS to ensure no issues. Colon screening sent Mammo ordered No other issues or concerns Screening for malignant neoplasm of colon 021333081 Z12.11 Screening mammography 24 884653 Z12.31 Mild inter mittent asthma 662986119 J45.20 Renew meds Please see your PCP for further RF's after this. [id number] [facility] [address] [address] 12/30/2022 11:12:31 12/30/2022 12:53:59 Gynecologic examination 45301637 Z01.419 Z11.51 Take Calcium with Vitamin D 12-1500mg daily. Do monthly self breast exams. It is advised to get annual flu shot in the fall and she could obtain at [facility] or [facility] clinic. If you haven't received the Tdap vaccine in the last 10 years you should obtain one as well. Have mammogram yearly, bone density every 2-3 years and colonoscop y every 5-10 years depending on findings and history. Engage in daily exercise of low impact aerobic exercise 45-60 minutes 4-5 times weekly. Avoid tobacco and illicit drugs as well as using moderation with alcohol intake less than 1-2 8 oz beverages daily. This lifestyle behavior pattern will lead to less health conditions and longer life span. If BMI greater than 25 weight watchers or dietary consult advised. Questions have been answered. Patient appears to understand instructio ns, but if you have any further questions call or respond to this email Pap/hpv sentSTD Screen declinedGe netic Screen discussedC olon Screen UTD PCPDexa Screen naRoutine Labs PCP Screening mammography 24 261410 Z12.31 N60.19 [id number] DANIEL Godinez [place] [address] [address] 03/29/2024 14:53:18 03/29/2024 15:56:21 Gynecologic examination 00175330 Z01.419 WWEpostmen opausalPap - UTD / not indicated today.STI screen - declinedMa mmogram - order givenColon cancer screening - UTDDexa - n/aRoutine labs - UTD/PCPBP precaution s discussed, encouraged PCP f/uRTC in 1 yr or sooner if needed Do monthly self breast exams.It is advised to get annual flu shot in the fall and she could obtain at local pharmacy. If you haven't received the Tdap vaccine in the last 10 years you should obtain one as well.Have mammogram yearly, bone density every 2-3 years and stay up to date on colon cancer screening. Engage in regular exercise. Avoid tobacco and illicit drugs. This lifestyle behavior pattern will lead to less health conditions and longer life span. If BMI greater than 25 dietary consult advised.Qu estions have been answered. Screening for malignant neoplasm of breast 235337159 Z12.39 Vaginal dryness 49936345 N89.8 management options reviewedve g based moisturize r routine discussedr x sent for estradiol vaginal cream, r/b/a reviewed Health Concerns Section Related Observation LastModified by Organization Detai ls LastModified Time None Recorded Concern Status LastModified by Organization Details LastModified Time None Recorded Advance Directives Directive N: Payers Encounter Date Sequence Insurance Name Policy Number Policy Chance Covered Member ID Chance Member ID Guarantor Name 08/20/2020 1 [facility] [id number] Robert Patel McSparin [id number] Waleska Olea McSparin 12/30/2022 1 [facility] [id number] Robert Patel McSparin [id number] Waleska Olea McSparin 03/29/2024 1 [facility]) [id number] Robert Patel McSparin [id number] Waleska Olea McSparin Notes Date Note Type Note Provider Name and Address Organization Details Recorded Time 1 text/html 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.Menopausal Symptoms:no menopausal symptoms; normal vaginal lubrication Vaginal Bleeding:history of menopause having occurred; no history of post menopausal bleeding Urinary Symptoms:no hematuria; no incontinence; no nocturia; no urinary frequency Vulva:no genital lesion; no vulvar atrophy Vagina:normal vaginal discharge; no vaginal atrophy Breast:no breast lump; no nipple discharge; no breast pain Sexual Complaints:no sexual complaints Psychological Symptoms:no depression; no anxiety Preventive Measures:encourage regular mammograms starting age 40; encourage self breast examination; encourage regular exercise; encourage no tobacco use; needs to schedule mammogram; needs to schedule colonoscopy No menses since 12/2019. Keeping a menstrual diary. Radha Yarbrough, MARCELLA- [address], [place], [address], [facility] 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.Menopausal Symptoms:no menopausal symptoms; normal vaginal lubrication Vaginal Bleeding:history of menopause having occurred; no history of post menopausal bleeding Urinary Symptoms:no hematuria; no incontinence; no nocturia; no urinary frequency Vulva:no genital lesion; no vulvar atrophy Vagina:normal vaginal discharge; no vaginal atrophy Breast:no breast lump; no nipple discharge; no breast pain Sexual Complaints:no sexual complaints Psychological Symptoms:no depression; no anxiety Preventive Measures:encourage regular mammograms starting age 40; encourage self breast examination; encourage regular exercise; encourage no tobacco use; mammogram performed within the past year; needs to schedule mammogram; history of recent colonoscopy DANIEL Coeloh- [address], [place], [address], [facility] 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.Menopausal Symptoms:no menopausal symptoms;inadequacy of lubrication of vaginal mucosa Vaginal Bleeding:history of menopause having occurred; no history of post menopausal bleeding Urinary Symptoms:no hematuria; no incontinence; no nocturia; no urinary frequency Vulva:no genital lesion; no vulvar atrophy Vagina:normal vaginal discharge; no vaginal atrophy Breast:no breast lump; no nipple discharge; no breast pain Sexual Complaints:no sexual complaints Psychological Symptoms:no depression; no anxiety Preventive Measures:encourage regular mammograms starting age 40; encourage self breast examination; encourage regular exercise; encourage no tobacco use; mammogram performed within the past yearNotes:53yo wwepostmenopausalno h/o abnormal papslast pap 12/2022 : nilm, HPV (-)mammogram last 4colonoscopy UTD DANIEL Godinez [address], [place], [id number], [facility] 03/29/2024 15:48:24 OBGyn Episode Ob Episode Information Episode Created Date Number of Fetuses Patient Bloodtype Patient rh Status Prepregnancy Weight lbs Domestic Partner Domestic Partner Phone Father Name Manager Spring Status 08/21/19 21 1 CLOSED Fetus Data First Name Last Name Admitted to NICU Weight (g) Sex Living Outcome Pediatric Complications Fetus ID Race Codes Race Delivery Type 2778.25 1 F Prematur e 9933 Vaginal Delivery Yomi Calculation Initial Yomi Date Initial Exam Date Initial Exam Provider Initial Ultrasound Date Last Menstrual Period Date Ultra Sound Weeks Gestation 0 Eighteen To Twenty Week Yomi Update Ultra Sound Date Fundal Height At Umbil Quickening Date Ultra Sound Latest Weeks Gestation Final Yomi Confirmed By Final Yomi Confirmed Date Final Yomi Date Ultra Sound Latest Days Gestation 0 0 Menstrual History Last Menstrual Date Menses Monthly On Bcp Conception Prior Menses Frequency Hcg Plus Date Menarche Onset Age Delivery Information Delivery Date Delivery Type Labor Anesthesia Weeks Gestation Incision Type Labor Labor Length Hrs Delivered By Post Complications Tubal Sterilization Discharge Date Comments 1 Discharge Information Feeding Method Contraceptive Method Maternal HG B and HCT Levels Ob Episode Information Episode Created Date Number of Fetuses Patient Bloodtype Patient rh Status Prepregnancy Weight lbs Domestic Partner Domestic Partner Phone Father Name Manager Spring Status 08/21/19 21 1 CLOSED Fetus Data First Name Last Name Admitted to NICU Weight (g) Sex Living Outcome Pediatric Complications Fetus ID Race Codes Race Delivery Type 2352.78 1704 M Prematur e 9934 Vaginal Delivery Yomi Calculation Initial Yomi Date Initial Exam Date Initial Exam Provider Initial Ultrasound Date Last Menstrual Period Date Ultra Sound Weeks Gestation 0 Eighteen To Twenty Week Yomi Update Ultra Sound Date Fundal Height At Umbil Quickening Date Ultra Sound Latest Weeks Gestation Final Yomi Confirmed By Final Yomi Confirmed Date Final Yomi Date Ultra Sound Latest Days Gestation 0 0 Menstrual History Last Menstrual Date Menses Monthly On Bcp Conception Prior Menses Frequency Hcg Plus Date Menarche Onset Age Delivery Information Delivery Date Delivery Type Labor Anesthesia Weeks Gestation Incision Type Labor Labor Length Hrs Delivered By Post Complications Tubal Sterilization Discharge Date Comments 8 kidney problems Discharge Information Feeding Method Contraceptive Method Maternal HG B and HCT Levels Ob Episode Information Episode Created Date Number of Fetuses Patient Bloodtype Patient rh Status Prepregnancy Weight lbs Domestic Partner Domestic Partner Phone Father Name Manager Spring Status 08/21/19 21 1 CLOSED Fetus Data First Name Last Name Admitted to NICU Weight (g) Sex Living Outcome Pediatric Complications Fetus ID Race Codes Race Delivery Type 2919.77 1704 M Prematur e 9935 Vaginal Delivery Yomi Calculation Initial Yomi Date Initial Exam Date Initial Exam Provider Initial Ultrasound Date Last Menstrual Period Date Ultra Sound Weeks Gestation 0 Eighteen To Twenty Week Yomi Update Ultra Sound Date Fundal Height At Umbil Quickening Date Ultra Sound Latest Weeks Gestation Final Yomi Confirmed By Final Yomi Confirmed Date Final Yomi Date Ultra Sound Latest Days Gestation 0 0 Menstrual History Last Menstrual Date Menses Monthly On Bcp Conception Prior Menses Frequency Hcg Plus Date Menarche Onset Age Delivery Information Delivery Date Delivery Type Labor Anesthesia Weeks Gestation Incision Type Labor Labor Length Hrs Delivered By Post Complications Tubal Sterilization Discharge Date Comments 7 Discharge Information Feeding Method Contraceptive Method Maternal HG B and HCT Levels
== END 2024-05-01 08:20 | disposition home or self-care (01) ==
LOC: CHSIMG 08:23
PROVIDERS: PCP Nurse Practitioner Obstetrics & Gynecology; Visit Provider Nurse Practitioner
DX: Z12.31 Encounter for screening mammogram for malignant neoplasm of breast (principal)
CPT/HCPCS: 77063; 77067